=== PATIENT | female | born 1975 | race Caucasian/White ===

== ENCOUNTER 2020-04-01 00:57 | Emergency (ER) | payer SELFPAY ==
--- NOTE | 2020-04-01 07:59 | RAD ---
Exam:Left knee 4 views HISTORY: Pain. Injury. COMPARISON: 05/10/2010 FINDINGS: Preserved joint spaces. No fracture or malalignment. No joint effusion. IMPRESSION: No fracture or malalignment.
== END 2020-04-01 02:51 | disposition home or self-care (01) ==
LOC: ERS 00:57
DX: S83.92XA Sprain of unspecified site of left knee, initial encounter (principal); J45.909 Unspecified asthma, uncomplicated; M06.9 Rheumatoid arthritis, unspecified; F41.9 Anxiety disorder, unspecified; F31.9 Bipolar disorder, unspecified; F44.81 Dissociative identity disorder; F17.210 Nicotine dependence, cigarettes, uncomplicated; Y04.0XXA Assault by unarmed brawl or fight, initial encounter

== ENCOUNTER 2024-05-16 20:38 | Observation (INO) | payer OTHER, SELFPAY ==
[~2024-05-16 20:38] MED LIST: Iopamidol-370 76% 500 ML MDV (1 ML CHARGE) ONE
[2024-05-16 21:29] LABS: #Basophils 0.07 10x3/uL (0.0-0.2); %Basophils 0.5 % (0.0-1.0); %Lymphocytes 24.4 % (21.0-51.0); %Monocytes 6.5 % (0.0-10.0); %Neutrophils 64.9 % (42.0-75.0); Hematocrit 44.3 % (36.0-47.0); Hemoglobin 15.2 g/dL (12.0-16.0); Mean Corpuscular HGB CONC 34.3 g/dL (32.0-36.0); Mean Corpuscular Hemoglobin 26.3 pg (27.0-31.0); Mean Corpuscular Volume 76.8 fL (78.0-98.0); Mean Platelet Volume 9.9 fL (7.4-10.4); Platelet Count 302 10x3/uL (130-400); RBC Distribution Width 15.7 % (11.5-14.5); Red Blood Cell (RBC) Count 5.77 mill/uL (4.20-5.40)
[2024-05-16 21:31] LABS: Actual Bicarbonate (HCO3v) 21.8 mEq/L (22-28); Base Excess 0.5 mEq/L (-2.0 to +3.0); Calcium, Ionized (venous) 1.12 mmol/L (1.16-1.32); Chloride (VBG) 99 mmol/L (98-106); Hematocrit-VBG 48 % (36.0-47.0); Hemoglobin (Hb) 16.4 g/dL (11.7-16.0); Potassium (VBG) 3.76 mmol/L (3.70-5.30); Sodium 136 mmol/L (133-146); pH (venous) 7.518 (7.32-7.43)
[2024-05-16 21:41] LABS: PTT 27.4 sec (22.9-36.1); Prothrombin Time 12.7 sec (12.0-14.7)
[2024-05-16 21:43] LABS: BHCG - Serum Negative (NEGATIVE); Pregs Control Background? CLEAR/WHITE (CLR/WHITE); Pregs Control Bar Appear? YES (CONTROL BAR)
[2024-05-16 21:51] LABS: ALT (SGPT) 26 U/L (8-55); AST (SGOT) 28 U/L (5-34); Albumin 4.2 g/dL (3.5-5.0); Alkaline Phosphatase 69 U/L (40-110); Anion Gap 17 mmol/L (10-20); BUN (Urea Nitrogen) 10 mg/dL (7.0-18.7); Bilirubin, Total 0.8 mg/dL (0.2-1.2); Calc. Creatinine Clearance 0 mL/min (70-130); Calcium 10.1 mg/dL (7.8-10.44); Carbon Dioxide 21 mmol/L (22-29); Chloride 104 mmol/L (98-107); Estimated GFR 91; Glucose 87 mg/dL (70-105); Magnesium 1.8 mg/dL (1.6-2.6); Potassium 3.8 mmol/L (3.5-5.1); Protein, Total 7.2 g/dL (6.0-8.3); Sodium 138 mmol/L (136-145)
[2024-05-16 21:53] LABS: Troponin I Less than 0.010 ng/mL (< 0.028)
[2024-05-16] MEDS ORDERED: Ondansetron ODT 4 MG TAB SL PRN (22:15)
[2024-05-16] MEDS ORDERED: Ondansetron PF 4 MG/2 ML Vial IVP PRN (22:15)
[2024-05-16] MEDS ORDERED: Acetaminophen 325 MG TAB PO PRN (22:15)
[2024-05-16] MEDS ORDERED: Nicotine 14 MG PATCH TD PRN (23:24)
[2024-05-16] MEDS ORDERED: Aspirin Chewable 81 MG TAB ONE (23:29)
[2024-05-17 01:35] LABS: Hemoglobin A1c 4.9 % (4.0-6.0)
[2024-05-17] MEDS ORDERED: [UNRECOGNIZED DRUG - OTHER] INH PRN (01:49)
[2024-05-17] MEDS ORDERED: BUDESONIDE INH PRN (01:49)
[2024-05-17] MEDS ORDERED: FORMOTEROL FUMARATE INH PRN (01:49)
[2024-05-17 01:54] VITALS: BMI 28.4
[2024-05-17 05:08] LABS: #Basophils 0.08 10x3/uL (0.0-0.2); %Basophils 0.6 % (0.0-1.0); %Eosinophils 4.5 % (0.0-10.0); %Lymphocytes 35.9 % (21.0-51.0); %Monocytes 7.2 % (0.0-10.0); Hematocrit 39.8 % (36.0-47.0); Hemoglobin 13.3 g/dL (12.0-16.0); Mean Corpuscular HGB CONC 33.4 g/dL (32.0-36.0); Mean Corpuscular Hemoglobin 26.6 pg (27.0-31.0); Mean Corpuscular Volume 79.6 fL (78.0-98.0); Mean Platelet Volume 10.5 fL (7.4-10.4); Platelet Count 245 10x3/uL (130-400); RBC Distribution Width 15.7 % (11.5-14.5)
[2024-05-17 05:59] LABS: Anion Gap 11 mmol/L (10-20); BUN (Urea Nitrogen) 11 mg/dL (7.0-18.7); Calc. Creatinine Clearance 121 mL/min (70-130); Calcium 8.6 mg/dL (7.8-10.44); Carbon Dioxide 23 mmol/L (22-29); Cardiac Risk 3.2 (Less than 4.5); Chloride 105 mmol/L (98-107); Cholesterol 102 mg/dl (< 200 Desired); Estimated GFR 108; Glucose 81 mg/dL (70-105); HDL Cholesterol 32 mg/dL (>60 Neg Risk); LDL Cholesterol, Calculated 58 mg/dL; Potassium 3.3 mmol/L (3.5-5.1); Sodium 136 mmol/L (136-145); Triglycerides 61 mg/dL (Less than 150)
[2024-05-17 06:41] LABS: Amphetamine Not Detected (NotDetected); Barbiturates Screen Not Detected (NotDetected); Benzodiazepine Screen Not Detected (NotDetected); Cocaine Metabolite Screen Not Detected (NotDetected); Methadone Not Detected (NotDetected); Methamphetamine Not Detected (NotDetected); Opiate Screen Not Detected (NotDetected); Oxycodone Screen Not Detected (NotDetected); Phencyclidine (PCP) Not Detected (NotDetected); THC/Cannabinoid Screen Detected (NotDetected); Tricyclic Screen Not Detected (NotDetected)
[2024-05-17] MEDS ORDERED: Mometasone 200 MCG/Formoterol 5 MCG 120 PUFF INHALER INH PRN (08:50)
[2024-05-17] MEDS: Potassium Chloride 20 MEQ TAB PO SCH (10:20)
[2024-05-17] MEDS: Clopidogrel Bisulfate 75 MG TAB PO SCH (10:21)
[2024-05-17] MEDS: DULoxetine 60 MG CAP PO SCH (10:21)
[2024-05-17] MEDS: metroNIDAZOLE 500 MG TAB PO SCH (10:21)
[2024-05-17] MEDS: Aspirin 81 mg Enteric Coated Tablet PO SCH (10:21)
[2024-05-17] MEDS: Enoxaparin 40 MG (0.4 mL) SYRINGE SC SCH (10:22)
[2024-05-17] MEDS: Ipratropium/Albuterol 3 ML NEB NEB SCH (10:48)
[2024-05-17] MEDS: Ipratropium/Albuterol 3 ML NEB NEB PRN (16:42)
[2024-05-17 16:43] VITALS: BP 101/69; TEMP 98.8
[2024-05-17] MEDS: Albuterol 200 PUFF (6.7GM INHALER) INH PRN (16:44)
[2024-05-17] MEDS ORDERED: traZODone HCl 50 MG TAB PO SCH (21:00)
[2024-05-17] MEDS ORDERED: rOPINIRole HCl 1 MG TAB PO SCH (21:00)
[2024-05-17] MEDS ORDERED: Atorvastatin Calcium 40 MG TAB PO SCH (21:00)
== END 2024-05-17 18:47 | disposition home or self-care (01) ==
LOC: ERS 20:38 → 2SE 22:10
PROVIDERS: ADMIT Student in an Organized Health Care Education/Training Program; ATTEND Student in an Organized Health Care Education/Training Program
DX: G45.9 Transient cerebral ischemic attack, unspecified (principal); J44.9 Chronic obstructive pulmonary disease, unspecified; E87.3 Alkalosis; E87.20 Acidosis, unspecified; D72.829 Elevated white blood cell count, unspecified; N76.0 Acute vaginitis; B96.89 Other specified bacterial agents as the cause of diseases classified elsewhere; F41.9 Anxiety disorder, unspecified; Z87.891 Personal history of nicotine dependence; J45.909 Unspecified asthma, uncomplicated; F32.A Depression, unspecified; F15.90 Other stimulant use, unspecified, uncomplicated; Z88.1 Allergy status to other antibiotic agents; Z79.51 Long term (current) use of inhaled steroids; Z79.899 Other long term (current) drug therapy; Z90.49 Acquired absence of other specified parts of digestive tract; Z98.51 Tubal ligation status; F17.210 Nicotine dependence, cigarettes, uncomplicated; F12.90 Cannabis use, unspecified, uncomplicated
CPT/HCPCS: 36415; 70450; 70496; 70498; 70551; 71045; 80048; 80053; 80061; 80306; 82805; 83036; 83605; 83735; 84443; 84484; 84703; 85025; 85610; 85730; 93005; 94640; G0378; J7620; Q9967

== ENCOUNTER 2024-08-12 23:10 | Emergency (ER) | payer OTHER ==
[2024-08-13 00:01] LABS: Bilirubin Negative (Negative); Blood, Urine Negative (Negative); CAUTI Indications for Culture Pelvic or flank pain; Clarity Clear (Clear); Glucose, Urine (Dipstick) Normal (Negative); Ketone, Urine 40 mg/dL (Negative); Leukocyte Negative Leu/uL (Negative); Nitrite Negative (Negative); Protein, Urine (Dipstick) 20 mg/dL (Neg-Trace); RBC/HPF 0-3 HPF (0-3); Specific Gravity, Urine 1.012 (1.002-1.036); Squamous Epithelial 0-3 HPF (0-3); Urobilinogen Normal mg/dL (Less than 2)
[2024-08-13 00:03] LABS: Actual Bicarbonate (HCO3v) 19.9 mEq/L (22-28); Analyzer IN Cardio ER; Base Excess -5.9 mEq/L (-2.0 to +3.0); Chloride (VBG) 100 mmol/L (98-106); Hematocrit-VBG 47 % (36.0-47.0); Sodium 136 mmol/L (133-146); pH (venous) 7.311 (7.32-7.43)
[2024-08-13 00:12] LABS: #Basophils 0.05 10x3/uL (0.0-0.2); %Basophils 0.4 % (0.0-1.0); %Eosinophils 0.4 % (0.0-10.0); %Lymphocytes 10.2 % (21.0-51.0); %Monocytes 6.9 % (0.0-10.0); %Neutrophils 80.8 % (42.0-75.0); Hematocrit 45.4 % (36.0-47.0); Hemoglobin 14.8 g/dL (12.0-16.0); Mean Corpuscular HGB CONC 32.6 g/dL (32.0-36.0); Mean Corpuscular Hemoglobin 27.8 pg (27.0-31.0); Mean Corpuscular Volume 85.3 fL (78.0-98.0); Mean Platelet Volume 9.8 fL (7.4-10.4); Platelet Count 224 10x3/uL (130-400); RBC Distribution Width 14.4 % (11.5-14.5); Red Blood Cell (RBC) Count 5.32 mill/uL (4.20-5.40)
[2024-08-13 00:12] LABS: Bacteria/HPF 1+ HPF (None Seen)
[2024-08-13 00:14] LABS: Urine Culture Reflex No No
[2024-08-13 00:28] LABS: Lipase 22 U/L (8-78); Magnesium 1.7 mg/dL (1.6-2.6)
[2024-08-13 00:29] LABS: Acetaminophen Less than 10 mcg/mL (Less than 10); Alcohol Less than 10.0 mg/dL (Less than 10); Salicylate Less than 8.0 mg/dL (Less than 8.0)
[2024-08-13] MEDS ORDERED: methylPREDNISolone Sod Succ/PF 125 MG/2 ML VIAL ONE (00:29)
[2024-08-13 00:30] LABS: ALT (SGPT) 26 U/L (8-55); AST (SGOT) 34 U/L (5-34); Albumin 4.1 g/dL (3.5-5.0); Alkaline Phosphatase 82 U/L (40-110); Anion Gap 18 mmol/L (10-20); BUN (Urea Nitrogen) 8 mg/dL (7.0-18.7); Bilirubin, Total 0.4 mg/dL (0.2-1.2); Calc. Creatinine Clearance 0 mL/min (70-130); Carbon Dioxide 19 mmol/L (22-29); Chloride 102 mmol/L (98-107); Estimated GFR 71; Globulin 3.8 g/dL (2.4-3.5); Glucose 100 mg/dL (70-105); Potassium 3.1 mmol/L (3.5-5.1); Protein, Total 7.9 g/dL (6.0-8.3); Sodium 136 mmol/L (136-145)
[2024-08-13 00:53] LABS: Troponin I Less than 0.010 ng/mL (< 0.028)
[2024-08-13] MEDS ORDERED: Ipratropium/Albuterol 3 ML NEB ONE (01:01)
[2024-08-13] MEDS ORDERED: cefTRIAXone (ROCEPHIN) 2 GM VIAL ONE (01:11)
[2024-08-13] MEDS ORDERED: Potassium Chloride 20 MEQ TAB ONE (01:11)
[2024-08-13] MEDS ORDERED: Sodium Chloride 0.9% 100 ML ONE (01:12)
[2024-08-13] MEDS ORDERED: Oseltamivir 75 MG CAP ONE (03:55)
[2024-08-13] MEDS ORDERED: Iopamidol-370 76% 500 ML MDV (1 ML CHARGE) ONE (11:17)
== END 2024-08-13 04:00 | disposition home or self-care (01) ==
LOC: ERS 23:10
DX: J44.1 Chronic obstructive pulmonary disease with (acute) exacerbation (principal); J18.9 Pneumonia, unspecified organism; J10.1 Influenza due to other identified influenza virus with other respiratory manifestations; E87.6 Hypokalemia; F17.210 Nicotine dependence, cigarettes, uncomplicated; Z86.73 Personal history of transient ischemic attack (TIA), and cerebral infarction without residual deficits; Z79.51 Long term (current) use of inhaled steroids; Z79.82 Long term (current) use of aspirin; Z79.899 Other long term (current) drug therapy
CPT/HCPCS: 36415; 71045; 71275; 80053; 80307; 81001; 82805; 83605; 83690; 83735; 83880; 84145; 84443; 84484; 85025; 85379; 87428; 93005; 94760; 96374; 96375; J0696; J2919; J7620; Q9967